=== PATIENT | male | born 1945 | race Caucasian/White ===

== ENCOUNTER → 2016-06-29 | Outpatient (CLI) | payer OTHER ==
[~2016-06-29] MED LIST: ASPIRIN PO; HYDROCODONE/APA1 T16 PO; LISINOPRIL PO; LODINE PO; LORTAB 7.5-5001 TAB PO; METHIMAZOLE10 MG PO; MIDODRINE 5 MG; NORVASC10 MG PO; PHENERGAN25 M1 PO; PREDNISONE PO; PREDNISONE10 MG PO; PREVACID PO; PROPRANOLOL HCL40 MG PO; PROPYLTHIOURACL PO; PROTONIX PO; TENORMIN50 MG PO; ZOFRAN ODT4 MG PO; ZOFRAN PO
--- NOTE | ~2016-06-29 | US6 ---
[facility] A Service of [facility] & [facility] RADIOLOGY TEXT RESULTS PATIENT: BAM SALES LOCATION: [facility] : 41 UNIT #: [id number] AGE: [address]: Jas Michel MD SEX: M ORDER DR: [id number] [facility] [address] [place], [place] [address] [id number] O MR#: [id number] Acc #: [id number] NAME: BAM SALES : 1945 SEX: M STUDY DATE/TIME: 06/29/2016 7:53 UNIT: CGUS ROOM: STUDY DESCRIPTION: US Abdominal Limited Attending Physician: Jas Michel M.D. Referring Physician: Jas Michel M.D. Ordering Physician: Jas Michel M.D. Primary Care Physician: Jas Michel M.D. MEDICAL IMAGING REPORT This report is preliminary unless electronic signature is present EXAM Right upper quadrant ultrasound 06/29/2016 HISTORY Abnormally elevated liver enzymes on 06/16/2016. Cholecystectomy 15 years ago. Hypertension. FINDINGS The liver demonstrates an increase in echotexture with attenuation of the ultrasound beam characteristic of fatty infiltration. No cystic or solid mass lesions were seen in the liver. The intra and extrahepatic bile ducts are not dilated. The gallbladder is surgically absent. The common duct measures 8 mm. The pancreas is normal. Nonobstructing right renal stones are noted. IMPRESSION 1. Fatty infiltration of the liver. 2. Surgical absence of the gallbladder. 3. Nonobstructing right renal stones. Dictated by... Martell Connolly M.D. THIS IS AN ELECTRONICALLY VERIFIED REPORT Martell Connolly M.D. at 06/30/2016 8:29 AM JUSTINO/cherelle TD: 06/29/2016 09:27 JOB #: [id number] MEDICAL IMAGING REPORT Page 1 of 1 COPY
== END | disposition home or self-care (01) ==
LOC: CGUS 07:31
DX: R74.8 Abnormal levels of other serum enzymes (principal); K76.0 Fatty (change of) liver, not elsewhere classified; N20.0 Calculus of kidney; Z90.49 Acquired absence of other specified parts of digestive tract
CPT/HCPCS: 76705